=== PATIENT | female | born 1975 | race Caucasian/White ===

== ENCOUNTER 2019-07-06 16:34 | Emergency (ER) | payer SELFPAY ==
[2019-07-06] MEDS ORDERED: cefTRIAXone 1 GM Vial IM ONE (17:04)
--- NOTE | 2019-07-06 17:09 | EDM.PDOC ---
ED HPI GENERAL MEDICAL PROBLEM - General Chief Complaint: Genitourinary Problem Stated Complaint: burning with urination Time Seen by Provider: 07/06/19 16:42 Source of Information: Reports: Patient History Limitations: Reports: No Limitations - History of Present Illness INITIAL COMMENTS - FREE TEXT/NARRATIVE: Patient comes to ER with 10 day history of burning with urination and frequency. No hematuria. No specific fevers but did feel hot one day. Seen in clinic last Saturday and received Bactrim. UC contaminated/no results. Has not had any improvement of symptoms. No worsening either. Pyridium helps with discomfort. Has had UTIs in past but they always responded well to first agent. In case there was yeast infection contributing to symptoms patient did use antifungal, but again no change in symptoms. - Related Data Allergies Allergy/AdvReac Type Severity Reaction Status Date / Time levofloxacin [From Levaquin] Allergy Airway Verified 07/06/19 17:06 Tightness Home Meds: Home Meds Nitrofurantoin Monohyd/M-Cryst [Macrobid 100 mg Capsule] 100 mg PO BID #14 capsule 07/06/19 [Rx] Past Medical History Endocrine/Metabolic History: Reports: Obesity/BMI 30+ ED ROS GENERAL - Review of Systems Review Of Systems: See Below Constitutional: Denies: Fever, Chills, Weakness, Fatigue, Night Sweats, Diaphoresis HEENT: Reports: Glasses Respiratory: Reports: No Symptoms Cardiovascular: Reports: No Symptoms GI/Abdominal: Reports: Other (some lower abdominal cramping sensation intermittently). Denies: Constipation, Diarrhea, Hematochezia, Nausea, Vomiting : Reports: Dysuria, Frequency, Pain, Urgency. Denies: Discharge, Flank Pain, Hematuria Musculoskeletal: Reports: No Symptoms Skin: Reports: No Symptoms Neurological: Reports: No Symptoms Psychiatric: Reports: No Symptoms ED EXAM, GENERAL - Physical Exam Exam: See Below Exam Limited By: No Limitations General Appearance: Alert, No Apparent Distress, Obese Eye Exam: Bilateral Eye: EOMI, PERRL Nose: No: Nasal Deformity, Nasal Swelling, Nasal Drainage Throat/Mouth: Normal Lips, Normal Voice, No Airway Compromise Head: Atraumatic, Normocephalic Neck: Supple, Non-Tender, Full Range of Motion Respiratory/Chest: No Respiratory Distress, Lungs Clear, Normal Breath Sounds, No Accessory Muscle Use Cardiovascular: Regular Rate, Rhythm, No Murmur GI/Abdominal: Soft, Non-Tender (Female) Exam: Deferred Rectal (Female) Exam: Deferred Back Exam: No: CVA Tenderness (L), CVA Tenderness (R), Muscle Spasm, Paraspinal Tenderness, Vertebral Tenderness Extremities: Normal Capillary Refill Neurological: Alert, Oriented, Normal Cognition, Normal Gait, No Motor/Sensory Deficits Psychiatric: Normal Affect, Normal Mood Skin Exam: Warm, Dry, Intact, Normal Color Course - Orders/Labs/Meds Orders: Active Orders 24 hr Category Date Time Status UA RFX THEO AND CULT IF INDIC [URIN] Stat Lab 07/06/19 16:40 Received - Re-Assessments/Exams Free Text/Narrative Re-Assessment/Exam: 07/06/19 17:12 UA confirmed continued UTI. UC requested. Plan will be to give Rocephin IM and start patient on Macrobid. To follow up as needed if symptoms continue. Departure - Departure Time of Disposition: 17:30 Disposition: Home, Self-Care 01 Condition: Good Clinical Impression: UTI, Urinary tract infectious disease - Discharge Information *PRESCRIPTION DRUG MONITORING PROGRAM REVIEWED*: Not Applicable *COPY OF PRESCRIPTION DRUG MONITORING REPORT IN PATIENT ALEXANDER: Not Applicable Prescriptions: Nitrofurantoin Monohyd/M-Cryst [Macrobid 100 mg Capsule] 100 mg PO BID #14 capsule Referrals: Lala Genao, [employer] [Primary Care Provider] - Additional Instructions: See how your symptoms are using this regimen. We will see if this culture works out and try to identify the organism and what antibiotics it is sensitive to. If it shows that we need a different antibiotic we will try to reach you and make the change. Follow up again if you are not feeling improved within 48 hours. Follow up earlier if you have sudden worsening. - My Orders Last 24 Hours: My Active Orders 07/06/19 16:40 UA RFX THEO AND CULT IF INDIC [URIN] Stat - Assessment/Plan Last 24 Hours: My Active Orders 07/06/19 16:40 UA RFX THEO AND CULT IF INDIC [URIN] Stat
[2019-07-06] MEDS ORDERED: Nitrofurantoin Monohydrate/Macrocrystalline 100 MG Cap PO ONE (17:13)
== END 2019-07-06 18:07 | disposition home or self-care (01) ==
LOC: LL.ED 16:34
DX: N39.0 Urinary tract infection, site not specified (principal); Z88.1 Allergy status to other antibiotic agents; E66.9 Obesity, unspecified; Z68.41 Body mass index [BMI] 40.0-44.9, adult
CPT/HCPCS: 81001; 87086; 96372; 99283; 99283-25; A9270-GY; J0696; J2001

== ENCOUNTER 2022-12-11 04:30 | Emergency (ER) | payer OTHER ==
[2022-12-11 05:13] LABS: CHLORIDE,CL 108 mmol/L (98-107); SODIUM,NA 146 mmol/L (136-145)
[2022-12-11 05:14] LABS: ANION GAP 16.3 meq/L (7-15); ESTIMATED GFR 79 mL/min (>=60)
[2022-12-11 05:23] VITALS: BP 134/77; PULSE 71
[2022-12-11] MEDS: Lactated Ringers 1,000 ML IV ONE (06:01)
[2022-12-11] MEDS: Morphine 2 MG/ML SYRINGE IVPUSH ONE (06:01)
== END 2022-12-11 06:20 | disposition home or self-care (01) ==
LOC: LL.ED 04:30
DX: N20.0 Calculus of kidney (principal); R31.29 Other microscopic hematuria; I10 Essential (primary) hypertension; E11.9 Type 2 diabetes mellitus without complications; E66.9 Obesity, unspecified; Z68.30 Body mass index [BMI] 30.0-30.9, adult; Z88.1 Allergy status to other antibiotic agents; Z72.0 Tobacco use
CPT/HCPCS: 36415; 80048; 81001; 85025; 99284